=== PATIENT | female | born 1985 | race Hispanic/Latino ===

== ENCOUNTER 2019-07-19 09:12 | Outpatient (CLI) | payer OTHER ==
--- NOTE | 2019-07-19 10:01 | MMO ---
Bilateral MAMMO Bilat Diag [facility]. CLINICAL HISTORY: Patient is 34 years old and is seen for diagnostic exam and lump or thickening in the right breast. The patient has no family history of breast cancer. The patient has no personal history of cancer. VIEWS: The views performed were: bilateral craniocaudal with tomosynthesis; bilateral mediolateral oblique with tomosynthesis; and bilateral mediolateral with tomosynthesis. FILMS COMPARED: The present examination has been compared to a prior imaging study performed at [facility] on 07/19/2019. This study has been interpreted with the assistance of computer-aided detection. MAMMOGRAM FINDINGS: There are scattered fibroglandular densities. There are no suspicious masses, suspicious calcifications, or new areas of architectural distortion. There are no mammographic abnormalities in the area of palpable concern. The patient is referred back to her clinician. Negative imaging findings should not preclude biopsy if clinical findings are suspicious. IMPRESSION: THERE ARE NO MAMMOGRAPHIC ABNORMALITIES IN THE AREA OF PALPABLE CONCERN. THE PATIENT IS REFERRED BACK TO HER CLINICIAN. NEGATIVE IMAGING FINDINGS SHOULD NOT PRECLUDE BIOPSY IF CLINICAL FINDINGS ARE SUSPICIOUS. ANY DECISION TO BIOPSY SHOULD BE BASED ON CLINICAL ASSESSMENT. THE RESULTS OF THIS EXAM WERE SENT TO THE PATIENT. ACR BI-RADS Category 1 - Negative MAMMOGRAPHY NOTE: 1. A negative mammogram report should not delay a biopsy if a dominant of clinically suspicious mass is present. 2. Approximately 10% to 15% of breast cancers are not detected by mammography. 3. Adenosis and dense breasts may obscure an underlying neoplasm. Reported by: BOBY WOODRUFF MD Electonically Signed: [id number]
--- NOTE | 2019-07-19 11:14 | ULT ---
LIMITED RIGHT BREAST ULTRASOUND: DATE: 07/19/2019. PROVIDED CLINICAL HISTORY: Right nipple lump for 2 years. FINDINGS: Limited sonographic interrogation of the right breast was performed in the region of palpable concern . There is a normal sonographic appearance to the breast tissue. There is a nonspecific circumscrib ed area of altered echogenicity within the soft tissues of the right areola measuring about 7 mm. IMPRESSION: 1. BIRADS category 1 - negative. No sonographic abnormality is seen within the breast parenchyma. 2. Nonspecific soft tissue areolar mass. Consider surgical consultation if indicated. POS: OFF
== END 2019-07-19 09:13 | disposition home or self-care (01) ==
LOC: BICMAMMO 09:12
PROVIDERS: ATTEND Family Medicine
DX: N63.10 Unspecified lump in the right breast, unspecified quadrant (principal)
CPT/HCPCS: 77066; G0279

== ENCOUNTER 2020-11-28 08:26 | Outpatient (CLI) | payer OTHER ==
--- NOTE | 2020-11-28 08:52 | RAD ---
Chest 2 views: 11/28/2020 COMPARISON: None HISTORY: Costochondritis, pain FINDINGS: No pneumothorax, pleural fluid, focal consolidation, or alveolar edema. Heart and mediastin al contours are unremarkable. IMPRESSION: No acute findings.
== END 2020-11-28 08:27 | disposition home or self-care (01) ==
LOC: BICRAD 08:26
PROVIDERS: ATTEND Nurse Practitioner Family
DX: M94.0 Chondrocostal junction syndrome [Tietze] (principal)
CPT/HCPCS: 71046